=== PATIENT | male | born 1950 | race Caucasian/White ===

== ENCOUNTER 2017-01-02 12:00 | Emergency (ER) | payer MEDICARE, OTHER ==
[~2017-01-02] VITALS: Ht 177.8 cm; Wt 77.3 kg
[~2017-01-02 12:00] MED LIST: ALEVE 220MG220 MG PO; ASPIRIN 32325 MG/TAB PO; CARDI-OMEGA1000 MG PO; MULTIPLE VITAMI1 CAP PO; PROAIR HFA0.09 MG/AC IH; PROTONIX 40MG T40 MG PO; QVAR0.08 MG/AC IH; SINGULAIR 110 MG/TAB PO
[2017-01-02 12:06] VITALS: BP 133/81; TEMP 98.1
[2017-01-02 13:39] VITALS: PULSE 96
== END 2017-01-02 13:39 | disposition home or self-care (01) ==
LOC: COL.ER 12:00
DX: R04.0 Epistaxis (principal); K21.9 Gastro-esophageal reflux disease without esophagitis; Z79.82 Long term (current) use of aspirin

== ENCOUNTER 2021-09-10 07:51 | Emergency (ER) | payer MEDICARE, OTHER ==
[~2021-09-10] VITALS: Ht 175.3 cm; Wt 76.4 kg
[2021-09-10 08:08] VITALS: TEMP 97.6
[2021-09-10 08:21] LABS: BASO % 0.3 % (0.0-2.0); EOS # 0.2 K/mm3 (0.0-0.7); EOS % 2.5 % (0.0-4.0); GRAN # 5.1 K/mm3 (1.4-6.5); HEMATOCRIT 43.4 % (42.0-52.0); HEMOGLOBIN 14.7 g/dl (13.5-18.0); LYMPH # 0.9 K/mm3 (1.2-3.4); MEAN CELL VOLUME 95 fl (80.0-100.0); MEAN CORPUSCULAR HEMOGLOBIN 32 pg (27-31); MEAN CORPUSCULAR HGB CONC 34 g/dl (33.0-37.0); MEAN PLATELET VOLUME 10.1 fl (7.4-10.4); MONO # 0.7 K/mm3 (0.1-0.6); MONO % 9.8 % (1.7-9.3); PLATELET COUNT 190 K/mm3 (130-400); RED BLOOD COUNT 4.56 M/mm3 (4.20-5.60); REDCELL DISTRIBUTION WIDTH-CV 13.8 % (11.5-14.5)
[2021-09-10 08:36] LABS: PARTIAL THROMBOPLASTIN TIME 27.1 SECONDS (26.0-37.0)
[2021-09-10 08:37] LABS: ALBUMIN 3.3 gm/dL (3.4-4.8); BILIRUBIN,TOTAL 0.9 mg/dL (0.2-1.2); CALCIUM 8.8 mg/dL (8.4-10.2); CREATININE, serum 0.76 mg/dL (0.72-1.25); POTASSIUM 3.8 mmol/L (3.5-4.5); TOTAL PROTEIN 7.8 gm/dL (6.2-8.1)
[2021-09-10 08:42] LABS: TROPONIN-I 0.012 ng/mL (0.00-0.033)
[2021-09-10 09:32] VITALS: PULSE 99
[2021-09-10] MEDS ORDERED: ZOFRAN ODT4 MG PO (10:44)
[2021-09-10] MEDS ORDERED: ANTIVERT 25MG25 MG PO (10:44)
[2021-09-10 11:00] VITALS: BP 124/84
== END 2021-09-10 11:03 | disposition home or self-care (01) ==
LOC: COL.ER 07:51
PROVIDERS: Emergency Medicine
DX: R42 Dizziness and giddiness (principal); R11.2 Nausea with vomiting, unspecified
CPT/HCPCS: J2405; J7030; Q9967

== ENCOUNTER 2023-02-09 05:27 | Day surgery (SDC) | payer MEDICARE, OTHER ==
[~2023-02-09] VITALS: Ht 175.3 cm; Wt 75.2 kg
[~2023-02-09 05:27] MED LIST changes: +ANTIVERT 25MG25 MG PO; +ZOFRAN ODT4 MG PO
[2023-02-09] MEDS ORDERED: MAXZIDE-25MG TA1 TAB PO (06:00)
[2023-02-09] MEDS ORDERED: ENTOCORT EC3 MG PO (06:01)
[2023-02-09] MEDS ORDERED: IMODIUM 2MG CAPS2 MG PO (06:03)
[2023-02-09] MEDS ORDERED: TYLENOL 500MG500 MG PO (06:05)
--- NOTE | 2023-02-09 06:40 | NUR ---
0546 Pt ambulatory to bay 7 with use of a cane, gait steady, breathing even and unlabored. Pt is alert and oriented, accompanied today by his . Consents reviewed and signed by pt. IV established. LR infusing via gravity at KVO. Call light in reach. Warm blanket provided.
[2023-02-09 06:48] VITALS: BP 131/78; PULSE 91; TEMP 97.9
[2023-02-09] MEDS ORDERED: NORCO 325 MG-51 TAB PO (07:20)
[2023-02-09 09:10] VITALS: BP 115/74; PULSE 94; TEMP 97.7
[2023-02-09 09:25] VITALS: BP 120/72; PULSE 93
[2023-02-09 09:40] VITALS: BP 102/62; PULSE 96
[2023-02-09 09:55] VITALS: BP 108/66; PULSE 88
[2023-02-09 11:12] VITALS: BP 121/74; PULSE 87; TEMP 97.6
--- NOTE | 2023-02-09 18:36 | NUR ---
[id number]: PT TO RECOVERY BAY 7 FROM PACU S/P LEFT ROBOTIC INGUINAL HERNIA REPAIR A&O, PLACED ON MONITOR, VSS ON RA RECEIVED REPORT AND ASSUMED CARE OF PT FROM RUMA HAJI AT BEDSIDE 3 INCISION SITES COVERED WITH BANDAIDS - CDI, SCROTAL SUPPORT. DENIES COMPLAINT. PROVIDED FOOD/FLUIDS, TOLERATING WELL PT HAS REMAINED A&O, NAD, VSS ON RA, TOLERATING PO, IS WITHOUT SIGNIFICANT COMPLAINT, WITH STEADY GAIT WHILE USING CANE (BASELINE) BY END OF STAY IV D/C'D. D/C INSTRUCTIONS, FOLLOW UP REVIEWED AND HANDED TO PT. ALL QUESTIONS AND CONCERNS ADDRESSED TO PT SATISFACTION. TAKEN TO EXIT VIA W/C WITH ALL BELONGINGS AND PAPERWORK IN HAND, ASSISTED INTO PASSENGER SEAT OF POV. TO DRIVE HOME.
== END 2023-02-09 10:25 | disposition home or self-care (01) ==
LOC: SDCO 05:27
DX: K40.30 Unilateral inguinal hernia, with obstruction, without gangrene, not specified as recurrent (principal); I10 Essential (primary) hypertension; K21.9 Gastro-esophageal reflux disease without esophagitis; Z79.899 Other long term (current) drug therapy
CPT/HCPCS: C1781; J0690; J1100; J1200; J1885; J1920; J2405; J2704; J3010; J7120

== ENCOUNTER 2023-10-08 00:32 | Inpatient (IN) | payer MEDICARE, OTHER ==
[~2023-10-08] VITALS: Ht 175.3 cm; Wt 75.5 kg
[2023-10-08] VITALS (18 sets, daily range): BP systolic 95–143; BP diastolic 61–78; PULSE 75–105; TEMP 97.6–98.4
[~2023-10-08 00:32] MED LIST changes: +ENTOCORT EC3 MG PO; +IMODIUM 2MG CAPS2 MG PO; +MAXZIDE-25MG TA1 TAB PO; +NORCO 325 MG-51 TAB PO; +TYLENOL 500MG500 MG PO
[2023-10-08 00:49] LABS: HEMATOCRIT 40.4 % (42.0-52.0); HEMOGLOBIN 13.5 g/dl (13.5-18.0); MEAN CELL VOLUME 104 fl (80.0-100.0); MEAN CORPUSCULAR HEMOGLOBIN 35 pg (27-31); MEAN CORPUSCULAR HGB CONC 33 g/dl (33.0-37.0); MEAN PLATELET VOLUME 9.6 fl (7.4-10.4); PLATELET COUNT 186 K/mm3 (130-400); RED BLOOD COUNT 3.89 M/mm3 (4.20-5.60); REDCELL DISTRIBUTION WIDTH-CV 12.7 % (11.5-14.5)
[2023-10-08 01:04] LABS: PROTHROMBIN TIME 11.2 SECONDS (9.7-12.8)
[2023-10-08 01:06] LABS: CALCIUM 8.7 mg/dL (8.4-10.2); CREATININE, serum 0.83 mg/dL (0.72-1.25); POTASSIUM 4.1 mEq/L (3.5-4.5)
[2023-10-08] MEDS ORDERED: D5 1/2 NS 1,000 ML IV SCH (01:30)
[2023-10-08] MEDS ORDERED: Morphine 4 MG/ML VIAL IV PRN ×2 (01:30→12:45)
[2023-10-08] MEDS ORDERED: Naloxone 0.4 MG/ML VIAL IV PRN ×2 (01:30→12:45)
[2023-10-08] MEDS ORDERED: ALEVE 220MG220 MG PO (01:54)
[2023-10-08] MEDS ORDERED: QUESTRAN4 GM/9 GM PO (01:56)
[2023-10-08] MEDS ORDERED: Mag/Al Hydrox/Simeth Susp 30 ML CUP PO PRN (02:15)
[2023-10-08] MEDS ORDERED: LORazepam 1 MG TAB PO PRN (02:15)
[2023-10-08] MEDS ORDERED: LORazepam 2 MG/ML 1 ML VIAL IV PRN (02:15)
--- NOTE | 2023-10-08 02:18 | NUR ---
Report recieved from RUMA Tran from ED. All questions answered at this time.
[2023-10-08] MEDS ORDERED: Acetaminophen 500 MG TAB PO SCH ×2 (02:30→13:33)
--- NOTE | 2023-10-08 02:55 | NUR ---
Patient arrived to room 344 with with and personal belongings at bedside. At rest states his pain is about 3/10 and with movement about 9-10/10, prn pain meds given. VS obtained. Assessment and med rec complete. IV in left AC fluhses easily without complications. Shen draininging to dependent drainage. Oriented patient to room, bed, and call light. Needs met. Call light and personal items in reach. Bed in low position and bed alarm on.
[2023-10-08 03:09] LABS: ALBUMIN 3.2 g/dL (3.4-4.8); BILIRUBIN,TOTAL 0.6 mg/dL (0.2-1.2); TOTAL PROTEIN 7.5 g/dl (6.2-8.1)
[2023-10-08] MEDS ORDERED: TYLENOL 500MG500 MG PO (03:20)
[2023-10-08] MEDS ORDERED: oxyCODONE 5 MG TAB PO PRN ×2 (06:00→12:45)
--- NOTE | 2023-10-08 06:00 | NUR ---
Patient resting in bed. Rates pain at 6/10, prn pain meds given with small sip of water. Patient has been otherwise NPO. Needs met. Shen draining to dependent drainage. Ice on left upper thigh. Pateint on CIWA protocol per Hospitalist order, scoring at a 1 for headache. Call light and personal items in reach. Bed in low position and bed alarm on.
[2023-10-08 06:16] LABS: COLLECTION METHOD CLEAN CATCH
[2023-10-08 06:22] LABS: PH 5.5 (5.0-8.5); URINE APPEARANCE CLEAR (CLEAR/HAZY); URINE BLOOD NEGATIVE (NEGATIVE); URINE COLOR YELLOW (YELLOW); URINE GLUCOSE NEGATIVE (NEGATIVE); URINE KETONE TRACE (NEGATIVE); URINE NITRATE NEGATIVE (NEGATIVE); URINE PROTEIN(semi-quant) NEGATIVE (NEGATIVE); URINE UROBILINOGEN 0.2 E.U/dL (0.2-1.0)
[2023-10-08 06:58] LABS: TRICYCLIC ANTIDEPRESS URINE NEGATIVE (NEGATIVE)
[2023-10-08] MEDS ORDERED: droPERidol 2.5 MG/ML 2 ML VIAL IV PRN (08:00)
[2023-10-08] MEDS ORDERED: Ondansetron 4 MG/2 ML VIAL IV PRN ×2 (08:00→12:45)
[2023-10-08] MEDS ORDERED: LR 1,000 ML IV SCH (08:00)
[2023-10-08] MEDS ORDERED: hydrALAZINE 20 MG/ML 1 ML VIAL IV PRN (08:00)
[2023-10-08] MEDS ORDERED: fentaNYL 50 MCG/ML 1 ML SYRINGE/VIAL [PACU/SDC ONLY] IV PRN (08:00)
[2023-10-08] MEDS ORDERED: HYDROmorphone 1 MG/1 ML SYRINGE [PACU/SDC ONLY] IV PRN (08:00)
[2023-10-08] MEDS ORDERED: Montelukast 10 MG TAB PO SCH (09:00)
[2023-10-08] MEDS ORDERED: Loperamide 2 MG CAP PO SCH (09:00)
[2023-10-08] MEDS ORDERED: Cholestyramine/Aspartame (Sugar Free) 4 GM PACK PO SCH (09:00)
[2023-10-08] MEDS ORDERED: Folic Acid 1 MG TAB PO SCH (09:00)
[2023-10-08] MEDS ORDERED: Multivitamin TAB PO SCH (09:00)
[2023-10-08] MEDS ORDERED: Thiamine 100 MG TAB PO SCH (09:00)
--- NOTE | 2023-10-08 09:17 | NUR ---
SW met with patient to complete intake and discuss discharge planning. Patient informed SW that he resides outside of [place] with his (Jo Ann [phone]). Patient confirmed that his PCP is Dr Hernandez and pharmacy of choice is [facility]. Patient communicated that he is independent with ADLs and currently does not use any DMEs. Patient reports no DPOA- SW provided patient information that forms were available with hospital if interested, patient declined at this time. Discharge plan: Patient is anticipating to discharge back to his home with , pending further medical recommendations.
[2023-10-08 09:38] LABS: BASO % 0.2 % (0.0-2.0); GRAN # 3.4 K/mm3 (1.4-6.5); GRAN % 80.6 % (42.2-75.2); HEMATOCRIT 39.7 % (42.0-52.0); HEMOGLOBIN 13.4 g/dl (13.5-18.0); LYMPH # 0.3 K/mm3 (1.2-3.4); LYMPH % 7.9 % (20.0-51.0); MEAN CELL VOLUME 102 fl (80.0-100.0); MEAN CORPUSCULAR HEMOGLOBIN 34 pg (27-31); MEAN CORPUSCULAR HGB CONC 34 g/dl (33.0-37.0); MEAN PLATELET VOLUME 9.6 fl (7.4-10.4); MONO # 0.4 K/mm3 (0.1-0.6); MONO % 10.1 % (1.7-9.3); PLATELET COUNT 175 K/mm3 (130-400); REDCELL DISTRIBUTION WIDTH-CV 12.6 % (11.5-14.5)
--- NOTE | 2023-10-08 09:45 | NUR ---
SHIFT ASSESSMENT COMPLETE. PATIENT RESTING BED W/ AT BEDSIDE. PATIENT CURRENTLY BEDREST TILL AFTER SURGERY THIS AM. ALL MORNING MEDS HELD DUE TO NPO STATUS TILL AFTER SURGERY. PATIENT STATES PAIN 5/10 PAIN MEDS GIVEN ON PRODUCT REPRESENTATIVE AND NOT DUE YET. PATIENT HAS NO OTHER REQUEST AT THIS TIME. CALL LIGHT IN REACH
[2023-10-08 10:07] LABS: ALBUMIN 2.9 g/dL (3.4-4.8); BILIRUBIN,TOTAL 0.6 mg/dL (0.2-1.2); CALCIUM 8.5 mg/dL (8.4-10.2); CREATININE, serum 0.71 mg/dL (0.72-1.25); POTASSIUM 3.9 mEq/L (3.5-4.5)
--- NOTE | 2023-10-08 11:00 | NUR ---
PATIENT LEFT FLOOR TO OR.
[2023-10-08] MEDS ORDERED: fentaNYL 50 MCG/ML 2 ML VIAL ONE (11:18)
[2023-10-08] MEDS ORDERED: Midazolam 2 MG/2 ML VIAL ONE (11:18)
[2023-10-08] MEDS ORDERED: Lidocaine PF 2% (20 MG/ML) 5 ML VIAL ONE (11:19)
[2023-10-08] MEDS ORDERED: dexAMETHasone 10 MG/ML VIAL ONE (11:20)
[2023-10-08] MEDS ORDERED: Ondansetron 4 MG/2 ML VIAL ONE (11:20)
[2023-10-08] MEDS ORDERED: NS 10 ML IV ONE (11:20)
[2023-10-08] MEDS ORDERED: ePHEDrine 50 MG/ML VIAL ONE (11:52)
[2023-10-08] MEDS ORDERED: Topical Skin Adhesive 1 EACH (1 ML) TOP ONE (11:56)
[2023-10-08] MEDS ORDERED: D5LR 1,000 ML IV SCH (12:45)
[2023-10-08] MEDS ORDERED: Magnes Hydrox (MOM) 80 MG/ML 30 ML CUP PO PRN (12:45)
--- NOTE | 2023-10-08 13:20 | NUR ---
Data: Spiritual care visit attempted. Patient was at surgery. Visitor waiting in the room declined spiritual care visit. Assessment: None at this time. Plan of Care: Chaplains will remain available as needed/requested while Patient is admitted to this hospital.
--- NOTE | 2023-10-08 13:30 | NUR ---
PATIENT ARRRIVED BACK TO FLOOR FROM PACU. VSS. PATIENT REPORTS PAIN 4/10 PAIN MEDS GIVEN BY PACU BEFORE ARRIVLE TO FLOOR. PATIENT TOLERATING WATER AND JELLO, STATES HE WILL WAIT TILL DINNER TO EAT ANYTHING DUE TO NOT BEING VERY HUNGERY AND JUST WANTS TO REST AT THIS TIME. PATIENT HAS NO OTHE NEEDS AT THIS TIME. CALL LIGHT IN REACH
--- NOTE | 2023-10-08 19:20 | NUR ---
Patient resting in bed. Rates pain at 3/10 at this time, denies need for pain meds. Fresh water, sprite, and ice cream provided. SCDs in place. Assessment complete. IV in left AC infusing without complications. Incision to left hip CDI with steri-strips, gauze, and tegaderm in place. Ice in place on left hip. Call light and personal items in reach. Bed in low position and bed alarm on.
[2023-10-08] MEDS ORDERED: ceFAZolin 1 G in Water For Injection,Sterile 10 ML IV SCH (19:30)
[2023-10-08] MEDS ORDERED: Melatonin 3 MG TAB PO PRN (21:00)
[2023-10-08] MEDS ORDERED: Sennosides/Docusate 8.6-50 MG TAB PO SCH (21:00)
[2023-10-09] VITALS (17 sets, daily range): BP systolic 113–131; BP diastolic 63–76; PULSE 68–91; TEMP 97.8–98.7
--- NOTE | 2023-10-09 05:45 | NUR ---
Patient resting in bed. Rates pain at 5/10 after recieving oxy. CIWA scores remain at 0 overnight. Ice to left hip re-applied. No changes over night. Call light and persoanl items in reach. Bed in low position and bed alarm on.
[2023-10-09 07:04] LABS: BASO % 0.1 % (0.0-2.0); GRAN # 7.2 K/mm3 (1.4-6.5); GRAN % 86.1 % (42.2-75.2); HEMOGLOBIN 12.3 g/dl (13.5-18.0); LYMPH # 0.3 K/mm3 (1.2-3.4); LYMPH % 3.9 % (20.0-51.0); MEAN CELL VOLUME 101 fl (80.0-100.0); MEAN CORPUSCULAR HEMOGLOBIN 35 pg (27-31); MEAN CORPUSCULAR HGB CONC 34 g/dl (33.0-37.0); MEAN PLATELET VOLUME 10.4 fl (7.4-10.4); MONO # 0.8 K/mm3 (0.1-0.6); MONO % 9.4 % (1.7-9.3); PLATELET COUNT 174 K/mm3 (130-400); RED BLOOD COUNT 3.53 M/mm3 (4.20-5.60); REDCELL DISTRIBUTION WIDTH-CV 12.5 % (11.5-14.5)
[2023-10-09 07:05] LABS: HEMATOCRIT 35.8 % (42.0-52.0)
[2023-10-09 07:10] LABS: CALCIUM 8.4 mg/dL (8.4-10.2); CREATININE, serum 0.71 mg/dL (0.72-1.25)
[2023-10-09] MEDS ORDERED: Ascorbic Acid 500 MG TAB PO SCH (09:00)
[2023-10-09] MEDS ORDERED: Calcium Carbonate 500 MG TAB PO SCH (09:00)
--- NOTE | 2023-10-09 09:00 | NUR ---
SHIFT ASSESSMENT COMPLETE. VSS. PATIENT AWAKE IN BED FINISHING BREAKFAST. ALL MORNING MEDS GIVEN ORDERED. PT CAME IN DURING ASSESSMENT AND HELPED AMBULATE PATIENT TO BEDSIDE Braxton DIAS WITH WALKER. PATIENT TOLERATED WELL. PATIENT THEN AMBULATED TO RECLINER. PATIENT STATES LEFT HIP PAINFUL 6/10 PAIN MEDS GIVEN ORDERED. PATIENT HAS NO OTHER REQUEST OR COMPLAINTS AT SI TIME. CHAIR ALARM ON AND CALL LIGHT IN REACH.
--- NOTE | 2023-10-09 10:41 | NUR ---
clerical and administrative workers notes PT reccomends home with OP. SW met with pt and his who was agreeable to this. Pt prefers [facility] ([place] SW faxed referral to [facility]. Discharge Plan: home with OP PT
[2023-10-09] MEDS ORDERED: Multivitamin TAB PO SCH (12:00)
--- NOTE | 2023-10-09 19:10 | NUR ---
Patient resting in bed. Rates his pain at 5/10, recieved tylenol not long ago. Denies any needs at this time. Shen to dependent drainage. Assessment complete. IV in left AC flushes easliy without complications. Dressing to left hip is CDI. Call light and personal items in reach. Bed in low position and bed alarm on.
[2023-10-10] VITALS (11 sets, daily range): BP systolic 103–157; BP diastolic 63–88; PULSE 74–97; TEMP 98–98.2
--- NOTE | 2023-10-10 06:10 | NUR ---
Patient was able to have a BM this am. Patient tolerated transfer to bedside commode well with walker and assisstance. Pain when moving is at a 10/10, pain at rest is about 5/10, prn pain med given. No other events overnight. Recieved verbal order from EVANS Quintanilla to MYLENE gracia this am.
[2023-10-10 06:33] LABS: BASO % 0.4 % (0.0-2.0); EOS % 0.4 % (0.0-4.0); GRAN # 3.7 K/mm3 (1.4-6.5); GRAN % 78.1 % (42.2-75.2); HEMATOCRIT 37.9 % (42.0-52.0); HEMOGLOBIN 12.6 g/dl (13.5-18.0); LYMPH # 0.4 K/mm3 (1.2-3.4); LYMPH % 9.3 % (20.0-51.0); MEAN CELL VOLUME 105 fl (80.0-100.0); MEAN CORPUSCULAR HEMOGLOBIN 35 pg (27-31); MEAN CORPUSCULAR HGB CONC 33 g/dl (33.0-37.0); MEAN PLATELET VOLUME 10.9 fl (7.4-10.4); MONO # 0.6 K/mm3 (0.1-0.6); MONO % 11.6 % (1.7-9.3); PLATELET COUNT 165 K/mm3 (130-400); RED BLOOD COUNT 3.62 M/mm3 (4.20-5.60); REDCELL DISTRIBUTION WIDTH-CV 12.9 % (11.5-14.5)
[2023-10-10 07:08] LABS: CALCIUM 8.7 mg/dL (8.4-10.2); CREATININE, serum 0.75 mg/dL (0.72-1.25)
--- NOTE | 2023-10-10 08:26 | NUR ---
PT RESTING IN BED, ORDERED BREAKFAST. ORTHO SIGNED OFF ON PT. OK TO DISCHARGE HOME WITH OUT PATIENT THERAPY. DRESSING TO LEFT HIP CDI WITH GAUZE AND TEGADERM OVER INCISION. PT EATING AND DRINKING NO N/V.
--- NOTE | 2023-10-10 13:21 | NUR ---
sheet ironworker was notified by Dr. Luna patient would discharge home with outpatient PT tomorrow.
--- NOTE | 2023-10-10 14:56 | NUR ---
CASTRO CATHETER DISCONTINUED PER ORDERS. PT AMBULATING HALLS WITH .
--- NOTE | 2023-10-10 20:00 | NUR ---
Assessment complete. A&Ox4. Denies nausea/shortness of breath. Rating pain 7/10 to left hip-described as contant ache. Oxycodone given per dr order. INT to left AC flushes without difficulty. No s/s of infiltration. Dressing to left hip-gauze/tegaderm-CDI. TEDs/SCD bilat. Refusing ice pack. Due to void post gracia removal at 1600. Plan of care discussed for this shift to include meds/pain control/calling for questions/concerns. Verbalizes understanding. Call light in reach. Will monitor.
--- NOTE | 2023-10-10 21:48 | NUR ---
Unmeasured void post gracia removal. Voided without difficulty.
[2023-10-11] VITALS: BP 156/89; PULSE 75; TEMP 98.2
[2023-10-11 00:59] VITALS: BP_SYST 156
[2023-10-11 03:51] VITALS: BP 133/79; PULSE 78; TEMP 98.1
[2023-10-11 04:17] VITALS: BP_SYST 133
--- NOTE | 2023-10-11 06:36 | NUR ---
Patient had an uneventful night. Received oxycodone x1 for pain. Up out of bed-stand by with walker/gait belt. Voiding without difficulty. Left AC INT flushes without difficulty. VS stable. Denies current needs. Call light in reach. Will monitor.
[2023-10-11 07:22] VITALS: BP 124/76; PULSE 74; TEMP 98.5
--- NOTE | 2023-10-11 07:57 | NUR ---
pt a&ox4 sitting up in bed eating breakfast. vss. pt reports pain a 4/10 in his left hip. incision is cdi. teds and scds to ble. INT to left ac patent. pt denies needs at this time. fall precautions in place. call light in reach.
[2023-10-11] MEDS ORDERED: ASPIRIN E.C. 8181 MG PO (08:33)
[2023-10-11] MEDS ORDERED: TYLENOL 500MG500 MG PO (08:33)
[2023-10-11] MEDS ORDERED: OSCAL 500 TAB500 MG PO (08:34)
[2023-10-11] MEDS ORDERED: ROXICODONE 55 MG/TAB PO (08:35)
[2023-10-11] MEDS ORDERED: VITAMIN C500 MG PO (08:35)
[2023-10-11] MEDS ORDERED: SENEXON-S 50-81 EACH PO (08:35)
[2023-10-11 09:03] VITALS: BP_SYST 124
--- NOTE | 2023-10-11 09:27 | NUR ---
oil field worker attended interdisciplinary clinical rounding with Dr. Luna. Patient is medically ready for discharge. SW met with patient and reviewed the important message from [employer]. Patient understood and signed the form. SW made copy, placed original in chart and provided copy to patient. SW discussed discharge plan. Patient would like [facility] on [address] and he would like to schedule the appointment. Patient stated he would like to be scheduled with Sandra, if bilingual social worker could mention this when referring him as he worked with her before. KANDACE contacted [facility] [address] and confirmed the fax number. KANDACE explained patient will discharge today and provided the name of patient. KANDACE faxed referral and discharge orders to [facility] with the name of patient's preferred PT- Sandra. Discharge plan: Home with OP PT - [facility] on [address]
--- NOTE | 2023-10-11 10:01 | NUR ---
INT discontinued. discharge instructions given to pt and , all questions answered. instructed pt that Dr Rodriguez office was going to call him for a follow up appointment. pt escorted to personal vehicle by wheelchair.
== END 2023-10-11 10:06 | disposition home or self-care (01) | DRG 482 ==
LOC: COL.ER 00:32 → SURG 01:21
PROVIDERS: Emergency Medicine; Internal Medicine; Nurse Practitioner Family; Orthopaedic Surgery; ADMIT Internal Medicine
PROC: 0QS736Z Reposition Left Upper Femur with Intramedullary Internal Fixation Device, Percutaneous Approach (ICD-10-PCS; principal; 2023-10-08 10:30)
DX: M80.852A Other osteoporosis with current pathological fracture, left femur, initial encounter for fracture (principal); D72.819 Decreased white blood cell count, unspecified; K29.60 Other gastritis without bleeding; K52.89 Other specified noninfective gastroenteritis and colitis; K21.9 Gastro-esophageal reflux disease without esophagitis; H91.90 Unspecified hearing loss, unspecified ear
CPT/HCPCS: A9284; C1713; J0690; J1100; J1170; J2250; J2270; J2405; J2704; J2795; J3010; J7121